=== PATIENT | female | born 1940 | race Caucasian/White ===

== ENCOUNTER 2019-03-01 13:08 | Outpatient (CLI) | payer MEDICARE ==
--- NOTE | 2019-03-01 12:02 | PET ---
Exam: PET CT skull to mid thigh COMPARISON: None HISTORY: Solitary pulmonary nodule TECHNIQUE: A PET/CT was performed from the skull to the mid thigh after administration of 12.3 millic uries of F-18 FDG. Evaluation was performed on a [employer] workstation. FINDINGS: NECK: No areas of hypermetabolic activity. Mild nonspecific increased activity, although not hypermet abolic, localizes to the right thyroid lobe. CHEST: No areas of hypermetabolic activity. 1 cm pulmonary nodule of the right upper lobe does not de monstrate hypermetabolic activity. ABDOMEN/PELVIS: No areas of hypermetabolic activity. Borderline size, 11 mm lymph node of the pelvis, anterior to the right common iliac artery is present, without associated hypermetabolic activity. SKELETON: No areas of hypermetabolic activity CT images used for attenuation correction show large hiatal hernia, scattered vascular disease, colon ic diverticulosis and cortical scar of the left kidney. IMPRESSION: No evidence of hypermetabolic disease. Recommend continued CT thorax imaging follow-up of right upper lobe nodule. Transcribed Date/Time: 03/01/2019 12:04 PM
== END 2019-03-01 13:09 | disposition home or self-care (01) ==
LOC: PET 13:08
PROVIDERS: ATTEND Internal Medicine
DX: R91.1 Solitary pulmonary nodule (principal)
CPT/HCPCS: 78815; A9552

== ENCOUNTER 2019-11-22 13:32 | Outpatient (CLI) | payer MEDICARE ==
--- NOTE | 2019-11-22 14:07 | CT ---
EXAM: CT of the chest without contrast HISTORY: Right upper lobe pulmonary nodule COMPARISON: PET/CT 03/01/2019 TECHNIQUE: Multiple contiguous axial images were obtained in a CT the chest without contrast. Coronal and sagittal reformats were performed. FINDINGS: HEART: Normal in size without focal cardiac abnormality MEDIASTINUM: No hilar or mediastinal lymphadenopathy. There is a large hiatal hernia. Evaluation of t he mediastinum is limited without IV contrast. LUNGS: There is a stable well-circumscribed nodule in the right upper lobe measuring 10 mm in greates t dimension. No other pulmonary nodules are seen. PLEURAL SPACE: No pneumothorax or pleural effusion. CHEST WALL SOFT TISSUES: Unremarkable OSSEOUS STRUCTURES: Degenerative changes in the spine. VISUALIZED SUBDIAPHRAGMATIC STRUCTURES: Unremarkable IMPRESSION: 1. Stable right upper lobe pulmonary nodule. This should have been within PET resolution during the p rior PET scan. Therefore, this nodule is likely benign. 2. Hiatal hernia
== END 2019-11-22 13:33 | disposition home or self-care (01) ==
LOC: BICCT 13:32
PROVIDERS: ATTEND Internal Medicine
DX: R91.1 Solitary pulmonary nodule (principal); K44.9 Diaphragmatic hernia without obstruction or gangrene
CPT/HCPCS: 71250

== ENCOUNTER 2023-11-19 11:11 | Emergency (ER) | payer MEDICARE ==
[2023-11-19 11:57] LABS: Bacteria/HPF None Seen HPF (None Seen); Bilirubin Negative (Negative); Blood, Urine Negative (Negative); CAUTI Indications for Culture Alt mental st,lethar; Clarity Clear (Clear); Glucose, Urine (Dipstick) Normal (Negative); Ketone, Urine Negative (Negative); Leukocyte Negative Leu/uL (Negative); Nitrite Negative (Negative); Protein, Urine (Dipstick) Negative (Neg-Trace); RBC/HPF 0-3 HPF (0-3); Specific Gravity, Urine 1.003 (1.002-1.036); Squamous Epithelial None Seen HPF (0-3); Urobilinogen Normal mg/dL (Less than 2); WBC/HPF None Seen HPF (0-3); pH, Urine 6.5 (5.0-9.0)
[2023-11-19 11:58] LABS: Urine Culture Reflex No No
[2023-11-19 12:18] LABS: #Basophils 0.05 10x3/uL (0.0-0.2); %Basophils 0.8 % (0.0-1.0); %Eosinophils 1.7 % (0.0-10.0); %Monocytes 10.8 % (0.0-10.0); %Neutrophils 49.2 % (42.0-75.0); Hemoglobin 14.6 g/dL (12.0-16.0); Mean Corpuscular Hemoglobin 31.1 pg (27.0-31.0); Mean Corpuscular Volume 91.7 fL (78.0-98.0); Platelet Count 219 10x3/uL (130-400); RBC Distribution Width 12.2 % (11.5-14.5); Red Blood Cell (RBC) Count 4.69 mill/uL (4.20-5.40)
[2023-11-19 12:37] LABS: ALT (SGPT) 23 U/L (8-55); AST (SGOT) 29 U/L (5-34); Albumin 3.7 g/dL (3.4-4.8); Alkaline Phosphatase 129 U/L (40-110); Anion Gap 12 mmol/L (10-20); BUN (Urea Nitrogen) 19 mg/dL (9.8-20.1); Bilirubin, Total 0.6 mg/dL (0.2-1.2); Calc. Creatinine Clearance 0 mL/min (70-130); Calcium 9.9 mg/dL (7.8-10.44); Carbon Dioxide 24 mmol/L (23-31); Chloride 110 mmol/L (98-107); Estimated GFR 70; Globulin 3.4 g/dL (2.4-3.5); Glucose 85 mg/dL (83-110); Potassium 4.4 mmol/L (3.5-5.1); Protein, Total 7.1 g/dL (5.8-8.1); Sodium 142 mmol/L (136-145)
[2023-11-19 12:42] LABS: Troponin I Less than 0.010 ng/mL (< 0.028)
[2023-11-19 12:59] LABS: Influenza A by NAA Not Detected (NotDetected); Influenza B by NAA Not Detected (NotDetected); SARS-CoV-2 NAA Rapid Test DETECTED (NotDetected)
== END 2023-11-19 14:23 | disposition home or self-care (01) ==
LOC: ERS 11:11
DX: U07.1 COVID-19 (principal); I10 Essential (primary) hypertension
CPT/HCPCS: 0240U; 71045; 80053; 81001; 84484; 85025; 87086; 93005; 96374; 99285; J1885